=== PATIENT | female | born 1945 | race Caucasian/White ===

== ENCOUNTER 2017-05-08 11:36 | Emergency (ER) | payer MEDICARE ==
[~2017-05-08] VITALS: Ht 162.6 cm; Wt 57.0 kg
[~2017-05-08 11:36] MED LIST: CALC500T19 PO; MILK250C2 PO
[2017-05-08 11:41] VITALS: BP 196/86; PULSE 79; RESP 14; TEMP 98.2; O2SAT 98
[2017-05-08] MEDS ORDERED: SODIUM CHLOR 0.9% 1000 ML INJ 1,000 ML IV SCH (12:55)
[2017-05-08] MEDS ORDERED: SODIUM CHLORIDE 0.9% FLUSH 10 ML FLUSH IV FLUSH PRN (13:00)
[2017-05-08 13:12] VITALS: BP 141/67; PULSE 69; RESP 16; O2SAT 99
[2017-05-08] MEDS ORDERED: MILK140C PO (13:14)
[2017-05-08] MEDS ORDERED: CALC600T4 PO (13:14)
--- NOTE | 2017-05-08 13:31 | PD ---
HPI Chief Complaint: Abdominal Pain Time Seen by Provider: 12:46 Travel History International Travel<30 days: No Contact w/Intl Traveler<30days: No Traveled to known affect area: No History of Present Illness HPI This 71-year-old woman who presents to the emergency department complaining of abdominal pain ongoing for the past couple weeks. She saw her doctor 6 days ago and was given a clinical diagnosis of diverticulitis. She's been taking Cipro and Flagyl since then. She still having lower abdominal pain, initially worse on the left but now spreading throughout the lower abdomen, as well as some pleuritic low back pain. She has a history of an appendectomy but no other abdominal surgeries. She had a colonoscopy done within the past year or 2 that showed diverticulosis but she's never had diverticulitis before. No weight loss or night sweats. No nausea or vomiting. She knows a little bit of blood on her panties last night. Bowel limits of been overall normal. 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 Influenza Vaccination: Yes Menopausal: Yes Social History Alcohol Use: Yes (WINE DAILY) Tobacco Use: No Allergies-Medications (Allergen,Severity, Reaction): Coded Allergies: No Known Allergies (Unverified , 05/08/17) Reported Meds & Prescriptions Reported Meds & Active Scripts Active Reported Milk Thistle 140 Mg Cap 250 Mg PO BID Calcium Carbonate 1,500 Mg Tab 250 Mg PO DAILY 1,500 mg calcium carbonate (600 mg elemental calcium) Review of Systems Except as stated in HPI: all other systems reviewed are Neg Physical Exam Narrative GENERAL: Well-appearing 71-year-old woman, no acute distress. SKIN: Focused skin assessment warm/dry. HEAD: Atraumatic. Normocephalic. EYES: Pupils equal and round. No scleral icterus. No injection or drainage. ENT: No nasal bleeding or discharge. Mucous membranes pink and moist. NECK: Trachea midline. No JVD. CARDIOVASCULAR: Regular rate and rhythm. No murmur appreciated. RESPIRATORY: No accessory muscle use. Clear to auscultation. Breath sounds equal bilaterally. GASTROINTESTINAL: Abdomen is flat and soft. Minimal lower abdominal tenderness. No rebound or guarding. MUSCULOSKELETAL: No obvious deformities. No clubbing. No cyanosis. No edema. NEUROLOGICAL: Awake and alert. No obvious cranial nerve deficits. Motor grossly within normal limits. Normal speech. Data Data Last Documented VS Vital Signs Date Time Temp Pulse Resp B/P Pulse Ox O2 Delivery O2 Flow Rate FiO2 05/08/17 13:12 69 16 141/67 99 Room Air 05/08/17 11:41 98.2 Orders Complete Blood Count With Diff (05/08/17 12:55) Comprehensive Metabolic Panel (05/08/17 12:55) Lipase (05/08/17 12:55) Urinalysis - C+S If Indicated (05/08/17 12:55) Ct Abd/Pel W Iv Contrast(Rout) (05/08/17 12:55) Iv Access Insert/Monitor (05/08/17 12:55) Sodium Chlor 0.9% 1000 Ml Inj (Ns 1000 M (05/08/17 12:55) Sodium Chloride 0.9% Flush (Ns Flush) (05/08/17 13:00) Chest, Single Ap (05/08/17 ) Iohexol 350 Inj (Omnipaque 350 Inj) (05/08/17 14:35) Labs Laboratory Tests Test 05/08/17 13:05 White Blood Count 7.1 TH/MM3 Red Blood Count 4.01 MIL/MM3 Hemoglobin 13.0 GM/DL Hematocrit 37.4 % Mean Corpuscular Volume 93.4 FL Mean Corpuscular Hemoglobin 32.5 PG Mean Corpuscular Hemoglobin 34.8 % Concent Red Cell Distribution Width 12.5 % Platelet Count 338 TH/MM3 Mean Platelet Volume 7.7 FL Neutrophils (%) (Auto) 63.7 % Lymphocytes (%) (Auto) 20.4 % Monocytes (%) (Auto) 14.3 % Eosinophils (%) (Auto) 0.9 % Basophils (%) (Auto) 0.7 % Neutrophils # (Auto) 4.6 TH/MM3 Lymphocytes # (Auto) 1.5 TH/MM3 Monocytes # (Auto) 1.0 TH/MM3 Eosinophils # (Auto) 0.1 TH/MM3 Basophils # (Auto) 0.1 TH/MM3 CBC Comment DIFF FINAL Differential Comment Urine Color YELLOW Urine Turbidity CLEAR Urine pH 6.0 Urine Specific Irwin 1.007 Urine Protein NEG mg/dL Urine Glucose (UA) NEG mg/dL Urine Ketones 10 mg/dL Urine Occult Blood NEG Urine Nitrite NEG Urine Bilirubin NEG Urine Urobilinogen LESS THAN 2.0 MG/DL Urine Leukocyte Esterase NEG Urine RBC 1 /hpf Urine WBC 1 /hpf Urine Squamous Epithelial 1 /hpf Cells Microscopic Urinalysis Comment CULT NOT INDICATED Sodium Level 131 MEQ/L Potassium Level 3.6 MEQ/L Chloride Level 96 MEQ/L Carbon Dioxide Level 23.9 MEQ/L Anion Gap 11 MEQ/L Blood Urea Nitrogen 7 MG/DL Creatinine 0.73 MG/DL Estimat Glomerular Filtration 78 ML/MIN Rate Random Glucose 97 MG/DL Calcium Level 8.5 MG/DL Total Bilirubin 0.4 MG/DL Aspartate Amino Transf 82 U/L (AST/SGOT) Alanine Aminotransferase 49 U/L (ALT/SGPT) Alkaline Phosphatase 90 U/L Total Protein 7.3 GM/DL Albumin 3.5 GM/DL Lipase 109 U/L [facility] Medical Decision Making Medical Screen Exam Complete: Yes Emergency Medical Condition: Yes Interpretation(s) LABS: CBC is unremarkable. He is unremarkable. Lipase is normal. UA is unremarkable. Chest x-ray negative. CT abdomen and pelvis: Evidence of metastatic disease involving the liver, retroperitoneal lymph nodes, and omentum peritoneum. Primary site uncertain but ovarian GI tract malignancy should be included in the differential. Pattern is not highly suggestive of bladder carcinoma. Differential Diagnosis Diverticulitis, malignancy, infection, UTI, other Narrative Course Medical decision-making 71 year-old woman's abdominal pain for the past several weeks. She is some tenderness. Not sure she has diverticulitis. She's been treated for the past 5 days. She has no other symptoms of occult malignancy like night sweats or weight loss. We'll check labs, CT, UA, reassess. Diagnosis Primary Impression: Liver masses Referrals: Lew Osorio MD call for appointment Additional Instructions: Follow-up with your primary doctor on Tuesday. Call tomorrow for new patient visit with oncology. Return to the emergency department for any worsening chest pain, trouble breathing, or any other new or worsening symptoms. Med/Other Pt SpecificInfo: Prescription(s) given Disposition: 01 DISCHARGE HOME Condition: Stable Lito Mason MD May 08, 2017 13:31
[2017-05-08 13:48] LABS: AUTOMATED NEUTROPHIL # 4.6 TH/MM3 (1.8-7.7); BASOPHIL # 0.1 TH/MM3 (0-0.2); BASOPHIL % 0.7 % (0.0-2.0); EOSINOPHIL # 0.1 TH/MM3 (0-0.4); EOSINOPHIL % 0.9 % (0.0-4.0); HEMATOCRIT 37.4 % (35.0-46.0); HEMO FLAGS DIFF FINAL; LYMPH % 20.4 % (9.0-44.0); LYMPHOCYTE # 1.5 TH/MM3 (1.0-4.8); MEAN CELL VOLUME 93.4 FL (80.0-100.0); MEAN CORPUSCULAR HEMOGLOBIN 32.5 PG (27.0-34.0); MEAN CORPUSCULAR HGB CONC 34.8 % (32.0-36.0); MONO % 14.3 % (0.0-8.0); NEUT % 63.7 % (16.0-70.0); PLATELET COUNT 338 TH/MM3 (150-450); RED BLOOD COUNT 4.01 MIL/MM3 (4.00-5.30); RED CELL DISTRIBUTION WIDTH 12.5 % (11.6-17.2); WHITE BLOOD COUNT 7.1 TH/MM3 (4.0-11.0)
[2017-05-08 13:51] LABS: ALT (GPT) 49 U/L (10-53)
[2017-05-08 13:53] LABS: ALKALINE PHOSPHATASE 90 U/L (45-117); TOTAL BILIRUBIN ADULT 0.4 MG/DL (0.2-1.0)
[2017-05-08 13:55] LABS: BLOOD, URINE NEG (NEG); COMMENT (UR) CULT NOT INDICATED; CULTURE IF INDICATED CULT NOT INDICATED; GLUCOSE,URINE NEG (NEG); KETONE, URINE 10 mg/dL (NEG); NITRITE,URINE NEG (NEG); SQUAMOUS EPITHELIAL CELL URINE 1 /hpf (0-5); URINE COLOR YELLOW (YELLW/STRAW)
[2017-05-08 13:56] LABS: ANION GAP 11 MEQ/L (5-15); AST (GOT) 82 U/L (15-37); BICARBONATE 23.9 MEQ/L (21.0-32.0); BLOOD UREA NITROGEN 7 MG/DL (7-18); CHLORIDE 96 MEQ/L (98-107); GLOMERULAR FILTRATION RATE 78 ML/MIN (>89); POTASSIUM 3.6 MEQ/L (3.5-5.1); SODIUM (NA) 131 MEQ/L (136-145)
--- NOTE | 2017-05-08 13:58 | RADRPT ---
EXAM DATE/TIME: 05/08/2017 13:26 [facility] COMPARISON: No previous studies available for comparison. INDICATIONS : Chest pain. MEDICAL HISTORY : Carcinoma, bladder. SURGICAL HISTORY : None. ENCOUNTER: Initial ACUITY: 1 day PAIN SCORE: 2/10 LOCATION: Bilateral chest FINDINGS: No infiltrate, effusion or pneumothorax seen. Heart size within normal limits. Thoracic aorta is mild ly atherosclerotic. CONCLUSION: No evidence of acute cardiopulmonary disease. Lyndon Mathis MD on May 08, 2017 at 13:56 Board Certified Radiologist. This report was verified electronically.
[2017-05-08] MEDS ORDERED: IOHEXOL 350 MG/ML 10 ML VIAL (for RAD DIAG) IV ONE (14:35)
--- NOTE | 2017-05-08 15:15 | RADRPT ---
EXAM DATE/TIME: 05/08/2017 14:34 [facility] COMPARISON: No previous studies available for comparison. INDICATIONS : Diffuse abdomen pain today. IV CONTRAST: 70 cc Omnipaque 350 (iohexol) IV ORAL CONTRAST: No oral contrast ingested. RADIATION DOSE: 7.94 CTDIvol (mGy) MEDICAL HISTORY : Carcinoma, bladder. SURGICAL HISTORY : Tonsillectomy. hip replacement ENCOUNTER: Initial ACUITY: 1 day PAIN SCALE: 6/10 LOCATION: Bilateral abdomen TECHNIQUE: Volumetric scanning of the abdomen and pelvis was performed. Using automated exposure control and ad justment of the mA and/or kV according to patient size, radiation dose was kept as low as reasonably achievable to obtain optimal diagnostic quality images. DICOM format image data is available electro nically for review and comparison. FINDINGS: LOWER LUNGS: Vague low attenuation masses are seen in the liver measuring up to 4.9 x 7.3 cm in size compatible wi th metastatic disease. There is retroperitoneal lymphadenopathy with a left para-aortic node at the l evel of the renal hilum measuring 1.9 x 2.6 cm in size and numerous other nodes slightly smaller. The re is also lower omental thickening/caking. Small ascites present. There is a questionable midline pe lvic mass measuring 4.4 cm in size on series 2 image 59. I don't convincingly see a GI tract mass. The visualized lung bases are clear. No lytic or sclerotic lesion seen of the visualized osseous structures. Patient has bilateral hi p arthroplasties which causes considerable obscuration of the pelvic cavity structures related to met allic streak artifact. CONCLUSION: Evidence of metastatic disease involving the liver, retroperitoneal lymph nodes and the omentum/perit oneum. Primary site uncertain but an ovarian and GI tract malignancy should be included in the differ ential. The pattern is not highly suggestive of bladder carcinoma. Lyndon Mathis MD on May 08, 2017 at 15:06 Board Certified Radiologist. This report was verified electronically.
== END 2017-05-08 16:14 | disposition home or self-care (01) ==
LOC: NEPD 11:36
DX: R16.0 Hepatomegaly, not elsewhere classified (principal)
CPT/HCPCS: 71010; 74177; 80053; 81001; 83690; 85025; 96360; 96361; 99285; J7030; Q9967

== ENCOUNTER 2017-05-18 09:58 | Day surgery (SDC) | payer MEDICARE ==
[~2017-05-18] VITALS: Ht 162.6 cm; Wt 58.2 kg
[2017-05-18] VITALS (9 sets, daily range): BP systolic 127–161; BP diastolic 64–79; PULSE 65–77; RESP 18–20; TEMP 98.3–98.7; O2SAT 92–99
[~2017-05-18 09:58] MED LIST changes: -CALC500T19 PO; +CALC600T4 PO; +MILK140C PO; -MILK250C2 PO
[2017-05-18] MEDS ORDERED: CYAN1TAB24 (10:39)
[2017-05-18] MEDS ORDERED: TRAM50TA PO (10:39)
[2017-05-18] MEDS ORDERED: SODIUM CHLOR 0.9% 1000 ML IV SCH (11:00)
[2017-05-18 11:59] LABS: APTT (PATIENT) 35.3 SEC (24.3-30.1); PROTHROMBIN TIME - PATIENT 11.2 SEC (9.8-11.6)
[2017-05-18] MEDS ORDERED: LIDOCAINE HCL 1% 30 ML VIAL ONE (12:18)
[2017-05-18] MEDS ORDERED: fentaNYL CITRATE 250 MCG/5 ML AMP ONE (12:20)
[2017-05-18] MEDS ORDERED: MIDAZOLAM HCL 2 MG/2 ML VIAL ONE (12:20)
--- NOTE | 2017-05-18 16:04 | RADRPT ---
EXAM DATE/TIME: 05/18/2017 12:46 [facility] COMPARISON: No previous studies available for comparison. INDICATIONS : Liver mass. SEDATION TIME: 30 minutes BIOPSY SITE: Right upper quadrant. MEDICATION(S): 1.) 3 mg midazolam (Versed) IV 2.) 150 mcg fentanyl (Sublimaze) IV DEVICE(S): 1.) 20 gauge BioPince needle MEDICAL HISTORY : Carcinoma, bladder. SURGICAL HISTORY : Appendectomy. Bilateral total hip replacement. ENCOUNTER: Initial ACUITY: 1 day PAIN SCORE: 0/10 LOCATION: Right upper quadrant A total of one core specimen(s) were obtained and sent to the laboratory for pathologic evaluation. PROCEDURE: 1. CT guided liver biopsy. Prior to the procedure informed consent was obtained. Any appropriate prior imaging studies were rev iewed. Using automated exposure control and adjustment of the mA and/or kV according to patient size, radiat ion dose was kept as low as reasonably achievable to obtain optimal diagnostic quality images. DICOM format image data is available electronically for review and comparison. The site was prepped in a sterile fashion. Full sterile technique was used, including cap, mask, jaguar rile gloves and gown and a large sterile sheet. Hand hygiene and 2% chlorhexidine and/or betadine/al cohol prep was utilized per protocol for cutaneous antisepsis. The skin and subcutaneous tissues wer e infiltrated with local anesthetic solution. Under CT guidance 18 gauge core was obtained. Follow-up CT scan reveals no hemorrhage. The patient tolerated the procedure well and there were no complications. The patient was returned to the Radiology Outpatient Unit in stable condition. CONCLUSION: Uncomplicated CT guided biopsy. Abdi Sarah MD FACR on May 18, 2017 at 16:02 Board Certified Radiologist. This report was verified electronically.
== END 2017-05-18 17:20 | disposition home or self-care (01) ==
LOC: HRAD 09:58 → HRIP 09:59 → HRAD 17:20
PROVIDERS: ATTEND Internal Medicine Hematology
DX: C78.7 Secondary malignant neoplasm of liver and intrahepatic bile duct (principal); C56.9 Malignant neoplasm of unspecified ovary; Z85.51 Personal history of malignant neoplasm of bladder; Z96.643 Presence of artificial hip joint, bilateral
CPT/HCPCS: 47000; 77012; 85610; 85730; 88307; 88333; 88341; 88342; J2250; J3010; J7030

== ENCOUNTER → 2017-06-02 | Day surgery (SDC) | payer MEDICARE ==
[~2017-06-02] MED LIST changes: +BUPIVACAINE/EPINEPHRINE 0.5% PF 10 ML VIAL ONE; +CYAN1TAB24; +MIDAZOLAM HCL 2 MG/2 ML VIAL ONE; +PROPOFOL 200 MG/20 ML AMP IV ONE; +SODIUM CHLOR 0.9% 1000 ML BAG IV ONE; +SODIUM CHLORIDE 0.9% INJ 10 ML ONE; +TRAM50TA PO; +ceFAZolin 2 GM PREMIX 50 ML ONE
--- NOTE | 2017-06-02 11:38 | TN ---
cc: MAIRA SWAIN M.D. DATE OF SURGERY 06/02/2017 PREOPERATIVE DIAGNOSIS Metastatic bladder cancer. POSTOPERATIVE DIAGNOSIS Metastatic bladder cancer. PROCEDURE PERFORMED Left subclavian port with intraoperative fluoroscopy. SURGEON Maira Swain MD ANESTHESIA TIVA with local COMPLICATIONS None INDICATION FOR THE PROCEDURE Ms. Baum is a very pleasant 71-year female who unfortunately has metastatic bladder pain cancer. She is under the care of Dr. Pepper Lucas and requires IV chemotherapy. The patient has limited peripheral access and she was referred for [id number]. The risks and benefits of [id number] placement was discussed with her and her and they were agreeable. DETAILS The patient was identified, brought to the operating room, placed supine on the operating table. After adequate IV sedation was achieved, the anterior chest and neck was prepped and draped in standard surgical fashion. 0.25% Marcaine injected in the skin and subcutaneous tissue around the left clavicle. The left subclavian vein was then accessed without difficulty using an 18 gauge needle. Guidewire was advanced and followed with direct fluoroscopy to the superior vena cava. A subcutaneous pocket was then fashioned in the left anterior chest using blunt and sharp dissection. The dilator was then placed over the guidewire and again followed direct fluoroscopy into the superior vena cava. Guidewire was then removed and catheter was advanced. Catheter was placed about 18 cm which put it in the junction of the right atrium. The catheter was then brought down to the subcutaneous pocket. Catheter was attached to the port with a locking device. The port was then tested, found have excellent blood return, easy ability to flush. The port was then secured in the pocket using a 2-0 Prolene suture. The wound was then irrigated with irrigated with local anesthetic and then closed in two layers using a 4-0 Vicryl. Sterile dressings were applied. The patient was awakened and brought to recovery. Chest x-ray Will be obtained in recovery. MD INÉS Caruso/MORGAN /11:22 AM /11:29 AM
== END | disposition home or self-care (01) ==
LOC: ESDC 09:01
PROVIDERS: ATTEND Surgery Trauma Surgery
DX: Z45.2 Encounter for adjustment and management of vascular access device (principal); C67.9 Malignant neoplasm of bladder, unspecified
CPT/HCPCS: 00532; 36561; 77001; C1788; J0690; J1642; J2250; J3010; J7030